=== PATIENT | male | born 1970 | race Caucasian/White ===

== ENCOUNTER 2022-03-12 10:41 | Outpatient (CLI) | payer OTHER ==
--- NOTE | 2022-03-12 11:53 | XRAY Report ---
PROCEDURE: Lumbar Spine 2 View INDICATIONS: LOW BACK PAIN TECHNIQUE: 2 views of the lumbar spine were acquired. COMPARISON: None. FINDINGS: Bones: 5 [id number] vertebrae are present. There is normal bony alignment. No vertebral body compression fractures. No suspicious bony lesions. Multilevel degenerative disc space loss. Lower l umbar facet arthropathy. Suspect canal stenosis. Soft tissues: Overlying bowel gas pattern is normal. No suspicious soft tissue calcifications. IMPRESSION: Degenerative change. Suspect canal stenosis. Comment: Lumbar spine MRI may potentially be helpful. Reviewed by: Ace Araujo MD on 03/12/2022 11:52 AM PDT Approved by: Ace Araujo MD on 03/12/2022 11:52 AM PDT Station ID: [id number]
== END 2022-03-12 10:42 | disposition home or self-care (01) ==
LOC: DI 10:41
PROVIDERS: ATTEND Student in an Organized Health Care Education/Training Program
DX: M47.816 Spondylosis without myelopathy or radiculopathy, lumbar region (principal)

== ENCOUNTER 2022-07-25 13:58 | Outpatient (CLI) | payer OTHER ==
--- NOTE | 2022-07-25 16:13 | MRI Report ---
PROCEDURE: LUMBAR SPINE WO INDICATIONS: LOW BACK PAIN TECHNIQUE: Noncontrast sagittal T1 spin echo and T2 fast echo, sagittal STIR, axial T1 and T2 fast spin echo thr ough the lumbar spine. In cases with scoliosis, additional coronal T2 fast spin echo may be performe d. COMPARISON: None. FINDINGS: Image quality: Excellent. Alignment and Curvature: There is normal bony alignment. Bone Marrow: Marrow is of normal overall signal. No acute vertebral body compression fractures. Spinal Cord: Conus medullaris terminates at the L1 level. Visualized cord demonstrates normal signa l and size. Paraspinous Soft Tissues: No paravertebral masses. L1-L2: there is a small broad-based disc protrusion present. No central canal or neural foraminal pauline nosis. L2-L3: There is a small broad-based disc protrusion with a small extruded fragment extending upward f rom the intervertebral disc space. There is some mild bilateral neural foraminal stenosis and mild ce ntral canal stenosis. L3-L4: There is a mild diffuse disc bulge present causing some mild to moderate bilateral neural fora jeffy stenosis and mild central canal stenosis. L4-L5: There is a mild diffuse disc bulge present causing some mild to moderate bilateral neural fora jeffy stenosis and mild central canal stenosis. L5-S1: There is a mild diffuse disc bulge present causing mild to moderate bilateral neural foraminal stenosis. No central canal stenosis. IMPRESSION: Foad-ma-[id number] degenerative changes noted throughout the patient's lumbar spine as yamel cribed above on a level by level basis. Reviewed by: Donnie Silva MD on 07/25/2022 4:12 PM PST Approved by: Donnie Silva MD on 07/25/2022 4:12 PM PST Station ID: [id number]
== END 2022-07-25 13:59 | disposition home or self-care (01) ==
LOC: DI 13:58
PROVIDERS: ATTEND Student in an Organized Health Care Education/Training Program
DX: M51.26 Other intervertebral disc displacement, lumbar region (principal); M48.061 Spinal stenosis, lumbar region without neurogenic claudication

== ENCOUNTER 2023-12-25 13:24 | Outpatient (CLI) | payer OTHER ==
--- NOTE | 2023-12-25 14:51 | MRI Report ---
Lumbar Spine WO Clinical History: 53 years of age, Male, LUMBAR SPONDYLOSIS. Comparison: 07/25/2022 Technique: Multiplanar multisequence lumbar spine MRI without contrast was performed. Findings: Localizer image: Hepatomegaly Partially lumbarized S1. Rudimentary disc is seen at S1-2. Prior surgery: None. Vertebral bodies: Small Schmorl's node is seen in the inferior endplate of L2, unchanged from prior e xam. Alignment: Mild levoscoliosis the lumbar spine, centered at L4. Mild retrolisthesis of L2 on L3, L3 o n L4 and L5 on S1. Bone marrow: Mild marrow edema at the right L4 facet, favoring degenerative. Intervertebral discs: Multilevel disc bulge and disc desiccation. The conus medullaris is normal in contour, signal intensity, and location. The tip of the conus is at L1 to. The following axial levels are detailed below: T12-L1: Mild bilateral facet arthropathy. No central canal stenosis. No right neuroforaminal stenosis . No left neuroforaminal stenosis. L1-L2: Mild disc bulge. No central canal stenosis. No right neuroforaminal stenosis. No left neurofor aminal stenosis. L2-L3: Disc bulge, superimposed on central disc extrusion, with slight superior extension. Mild centr al canal stenosis. No right neuroforaminal stenosis. No left neuroforaminal stenosis. L3-L4: Mild bilateral facet arthropathy. Mild disc bulge. No central canal stenosis. No right neurofo raminal stenosis. Mild left neuroforaminal stenosis. L4-L5: Mild bilateral facet arthropathy. No central canal stenosis. Mild right neuroforaminal stenosi s. Mild left neuroforaminal stenosis. L5-S1: Mild disc bulge, superimposed on central disc protrusion. Mild bilateral facet arthropathy. No central canal stenosis. Mild right neuroforaminal stenosis. Mild left neuroforaminal stenosis. Visualized sacrum and pelvis: Visualized sacrum is unremarkable. No abdominal aortic aneurysm. Multip le small left renal cyst. IMPRESSION: 1.Multilevel degenerative change of the lumbar spine, with multilevel mild central canal and neurofor aminal stenosis as described above. Overall, the degree of stenosis is grossly unchanged from prior e xam. 2.Mild marrow edema of the right L4 facet, favoring degenerative, new from prior exam. Reviewed by: Meenu Armas MD on 12/25/2023 2:49 PM PDT Approved by: Meenu Armas MD on 12/25/2023 2:49 PM PDT Station ID: [id number]
== END 2023-12-25 13:25 | disposition home or self-care (01) ==
LOC: DI 13:24
PROVIDERS: ATTEND Physical Medicine & Rehabilitation
DX: M47.816 Spondylosis without myelopathy or radiculopathy, lumbar region (principal); M48.061 Spinal stenosis, lumbar region without neurogenic claudication; R93.7 Abnormal findings on diagnostic imaging of other parts of musculoskeletal system